=== PATIENT | male | born 1955 | race African-American/Black ===

== ENCOUNTER 2018-08-14 08:09 | Inpatient (IN) | payer OTHER ==
[~2018-08-14] VITALS: Ht 165.1 cm; Wt 109.5 kg
[2018-08-14] MEDS ORDERED: ACETAMINOPHEN 325MG TABLET PO STA (08:33)
[2018-08-14] MEDS ORDERED: VANCOMYCIN 1 G PREMIX 200 ML IV ONE (08:45)
[2018-08-14] MEDS ORDERED: SODIUM CHLORIDE 0.9% 1000ML BAG (SEPSIS BOLUS) IV ONE (08:45)
[2018-08-14] MEDS ORDERED: PIPERACILLIN/TAZ 3.375G PREMIX 50 ML IV ONE (08:45)
[2018-08-14] MEDS ORDERED: ACETAMINOPHEN 325MG TABLET ONE (08:51)
[2018-08-14 08:54] LABS: HEMATOCRIT. 44.1 % (42.0-52.0); HEMOGLOBIN. 14.4 g/dL (14.0-18.0); MEAN CORPUSCULAR HEMOGLOBIN 27.7 pg (28.0-32.0); MEAN CORPUSCULAR VOLUME 85.1 fL (80.0-94.0); MEAN PLATELET VOLUME 7.8 fl (7.4-10.4); PLATELET 180 x1000/uL (130-400); RED BLOOD CELL COUNT 5.18 mill/uL (4.7-6.1); RED CELL DISTRIBUTION WIDTH 13.8 % (11.6-14.6)
[2018-08-14 08:55] LABS: CHLORIDE 107 mEq/L (98-107)
[2018-08-14 09:34] LABS: PLATELET ESTIMATE NORMAL
[2018-08-14 11:09] LABS: CLARITY URINE CLEAR (CLEAR); COLOR URINE YELLOW (YELLOW); KETONES URINE NEGATIVE (NEGATIVE); LEUKOCYTE ESTERASE URINE NEGATIVE (NEGATIVE); NITRITE URINE NEGATIVE (NEGATIVE); OCCULT BLOOD URINE 1+ (NEGATIVE); PH URINE 6.5 (4.5-8.0); PROTEIN URINE 4+ (NEGATIVE); SPECIFIC GRAVITY URINE 1.023 (1.005-1.030); UROBILINOGEN URINE 0.2 E.U./dL (0.2-1.0)
[2018-08-14 14:45] VITALS: BP 151/87
[2018-08-14] MEDS ORDERED: TRAMADOL 50MG TABLET PO PRN (15:00)
[2018-08-14] MEDS ORDERED: CLONIDINE 0.1MG TABLET PO PRN (15:00)
[2018-08-14] MEDS ORDERED: ACETAMINOPHEN 325MG TABLET PO PRN (15:00)
[2018-08-14 15:41] VITALS: BP 156/96
[2018-08-14 16:00] VITALS: BP 156/96
[2018-08-14] MEDS ORDERED: BENA40TA9 MT (16:18)
[2018-08-14] MEDS ORDERED: NIFE90TA34 MT (16:19)
[2018-08-14] MEDS ORDERED: GLIP5TAB12 MT (16:22)
[2018-08-14] MEDS ORDERED: DEXTROSE 50% WATER 50ML SYRINGE IV PRN (16:30)
[2018-08-14] MEDS ORDERED: LEVOFLOXACIN 500MG PREMIX 100 ML IV NR (17:00)
[2018-08-14] MEDS: INSULIN LISPRO 100 UNITS/ML SUBCUT SCH ×2 (17:50→22:07)
[2018-08-14] MEDS: NIFEDIPINE XL 90MG TAB PO SCH (17:54)
[2018-08-14] MEDS: BENAZEPRIL 10MG TABLET PO SCH (17:54)
[2018-08-14] MEDS: SODIUM CHLORIDE 0.9% 1,000 ML IV SCH (17:55)
[2018-08-14] MEDS: BLOOD SUGAR DIAGNOSTIC STRIP TEST SCH ×2 (17:55→21:00)
[2018-08-14] MEDS ORDERED: PIOG30TA70 MT (18:27)
[2018-08-14] MEDS ORDERED: FINA5TAB11 MT (18:28)
[2018-08-14] MEDS ORDERED: DOCU-150 MT (18:29)
[2018-08-14] MEDS ORDERED: METO-539 MT (18:30)
[2018-08-14] MEDS ORDERED: GLIM4TAB2 MT (18:31)
[2018-08-14] MEDS ORDERED: GABA-533 MT (18:33)
[2018-08-14] MEDS ORDERED: GABA-531 MT (18:33)
[2018-08-14] MEDS ORDERED: CYAN250T MT (18:34)
[2018-08-14] MEDS ORDERED: OMEP20CA5 MT (18:36)
[2018-08-14] MEDS ORDERED: LORA10TA7 MT (18:36)
[2018-08-14] MEDS ORDERED: TAMS0.4C31 MT (18:37)
[2018-08-14] MEDS ORDERED: ATOR40TA70 MT (18:38)
[2018-08-14] MEDS ORDERED: ASPI-1158 MT (18:39)
[2018-08-14 20:00] VITALS: BP 146/94
[2018-08-15] VITALS: BP 134/76
[2018-08-15 04:00] VITALS: BP 119/75
[2018-08-15] MEDS: BLOOD SUGAR DIAGNOSTIC STRIP TEST SCH (06:37)
[2018-08-15] MEDS: SODIUM CHLORIDE 0.9% 1,000 ML IV SCH (06:52)
[2018-08-15 06:54] LABS: BASOPHILS % 0.1 % (0.0-2.0); EOSINOPHILS % 0.6 % (0.0-5.0); HEMATOCRIT. 40.2 % (42.0-52.0); HEMOGLOBIN. 13.1 g/dL (14.0-18.0); LYMPHOCYTES % 16.7 % (20.0-50.0); MEAN CORPUSCULAR HEMOGLOBIN 27.5 pg (28.0-32.0); MEAN CORPUSCULAR VOLUME 84.7 fL (80.0-94.0); MONOCYTES % 10.9 % (2.0-8.0); NEUTROPHILS % 71.7 % (40.0-76.0); PLATELET 158 x1000/uL (130-400); RED BLOOD CELL COUNT 4.75 mill/uL (4.7-6.1); RED CELL DISTRIBUTION WIDTH 13.6 % (11.6-14.6)
[2018-08-15 07:25] LABS: CHLORIDE 110 mEq/L (98-107)
[2018-08-15 08:43] VITALS: BP 160/84
[2018-08-15] MEDS: NIFEDIPINE XL 90MG TAB PO SCH (09:00)
[2018-08-15] MEDS: BENAZEPRIL 10MG TABLET PO SCH (09:00)
[2018-08-15] MEDS: INSULIN LISPRO 100 UNITS/ML SUBCUT SCH (09:55)
[2018-08-15 11:36] VITALS: BP 118/81
[2018-08-15 11:49] VITALS: BP 118/81
[2018-08-15] MEDS ORDERED: LEVOFLOXACIN 250MG PREMIX 50 ML IV SCH (14:00)
== END 2018-08-15 15:08 | disposition home or self-care (01) | DRG 723 ==
LOC: ER 08:09 → 6WST 12:31 → EDBEDREQ 12:34 → EDBEDREQSVC 12:34 → ENRESERV 13:12
PROVIDERS: ADMIT Hospitalist; ATTEND Hospitalist
DX: B34.9 Viral infection, unspecified (principal); E11.22 Type 2 diabetes mellitus with diabetic chronic kidney disease; C18.9 Malignant neoplasm of colon, unspecified; I13.10 Hypertensive heart and chronic kidney disease without heart failure, with stage 1 through stage 4 chronic kidney disease, or unspecified chronic kidney disease; R65.10 Systemic inflammatory response syndrome (SIRS) of non-infectious origin without acute organ dysfunction; N18.9 Chronic kidney disease, unspecified; Z93.3 Colostomy status; Z85.038 Personal history of other malignant neoplasm of large intestine
CPT/HCPCS: 36415; 71045; 82962; 83036; 83605; 84484; 87804; 93005; 99285; J1815; J1956; J2543; J3370; J7030